=== PATIENT | male | born 1950 | race Caucasian/White ===

== ENCOUNTER 2020-12-30 14:41 | Inpatient (IN) | payer OTHER ==
[2020-12-30] VITALS (7 sets, daily range): BP systolic 105–123; BP diastolic 59–95
[~2020-12-30] VITALS: Ht 195.6 cm; Wt 103.1 kg
--- NOTE | ~2020-12-30 | HEMODYNAMI ---
PATIENT:EZEKIEL BERKOWITZ MEDICAL RECORD: [id number] : 48 LOCATION:[address] ADMISSION DATE: 12/30/20 Generatedon:112:34 Patient name: EZEKIEL BERKOWITZ Patient #: [id number] SSN: *[id number] : 1950 Date of study: 01/05/2021 Page: Of Hemodynamic Procedure Report Patient Data Patient Demographics Procedure consent was obtained First Name: EZEKIEL Gender: Male Last Name: SHO : 1950 [facility] Initial: L Age: 70 year(s) Patient #: [id number] Race: SSN: *[id number] Additional ID: [id number] Contact details [address]: [address] [place] [address] DRIVE State: [place] City: [place] Zip code: [address] Past Medical History Allergies: No known allergies Admission Admission Data Admission Date: 12/30/2020 Admission Time: 17:30 Admit Source: Other Room #: D.2124 Procedure Procedure Types Cath Procedure Diagnostic Procedure Cardioversion External Procedure Description Procedure Date Procedure Date: 01/05/2021 Procedure Start Time: 12:19 Procedure End Time: 12:31 Procedure Staff Name Function Tae Wheeler MD Performing Physician Vane Gaitan RT Monitor Crystal Rogers RT Scrub Isak Scott RN Nurse Ciaran Cortes CRNA Additional personnel Indication Atrial fibrillation Procedure Data Procedure Complications No complications Procedure Medications Medication Administration Route Dosage 0.9% NaCl I.V. 100 ml/hr Oxygen NC 5 l/min Refer to Anesthesia Notes for Sedation Medications Hemodynamics Rest Heart Rate: 75 (bpm) Snapshots Pre Cath Intra NCS Post Cath Vital Signs Time Heart Resp SPO2 NIBP Rhythm Pain Sedation Rate (ipm) (%) (mmHg) Status Level (bpm) 12:13:04 78 17 83 95/63(87) A-Fib 0 (11) 10(A) , No pain 12:17:07 73 16 92 96/55(91) A-Fib 0 (11) 10(A) , No pain 12:22:11 69 37 80 75/51(63) A-Fib 0 (11) 9(A) , No pain 12:24:55 59 21 82 81/61(75) NSR 0 (11) 8(A) , No pain 12:28:54 59 17 89 92/57(79) NSR 0 (11) 8(A) , No pain 12:32:41 75 28 94 Aborted NSR 0 (11) 8(A) , No pain Medications Time Medication Route Dose Verified Delivered Reason Notes Effectiven ess by by 12:15:39 0.9% NaCl I.V. 100 Isak Isak Per ml/hr Tyler Scott physician RN RN 12:15:52 Oxygen NC 5 Isak Isak for low l/min Tyler Scott 02 sats RN RN 12:19:53 Refer to Isak Isak for Anesthesia Tyler Scott sedation Notes for RN RN Sedation Medications Procedure Log Time Note 11:46:21 Informed consent obtained and on chart 11:46:37 Diagnostic Cath Status : Urgent 11:46:55 Indication : Atrial fibrillation 11:47:00 Admit Source: Other 11:47:05 ACC Patient presents with Stable Angina CCS Anginal Class 2--Slight limitation of ordinary activity. 11:47:09 Procedure Status Cardioversion. 11:47:10 Time tracking: Regular hours (M-F 7:00 - 5:00) 11:47:15 Plan of Care:Hemodynamics will remain stable., Cardiac rhythm will remain stable., Comfort level will be maintained., Respiratory function will remain adequate., Patient/ family verbilizes understanding of procedure., Procedure tolerated without complication., Recovers from procedure without complications.. 12:03:32 Isak Scott RN sent for patient. Start room use. 12:05:43 Patient received from PCU to CCL 2 Alert and oriented. Tansferred to table in Supine position. 12:05:45 Warm blankets applied, and harriet hugger turned on for patient comfort. 12:05:45 Correct patient and procedure confirmed by team. 12:05:46 ECG and BP/O2 sat monitors applied to patient. 12:05:47 Full Disclosure recording started 12:06:19 H&P Date Dictated: 12/31/2020 Within 30 days and on chart.. 12:06:20 Pre-procedure instructions explained to patient. 12:06:21 Pre-op teaching completed and patient verbalized understanding. 12:06:26 Family in patients room. 12:06:27 Patient NPO since Midnight. 12:06:44 Previous problem with sedation/anesthesia? No ? 12:06:45 Snore? No 12:06:47 Sleep apnea? No 12:06:48 Deviated septum? No 12:06:49 Opens mouth fully? Yes 12:06:50 Sticks out tongue? Yes 12:06:53 Airway obstruction? Yes COPD 12:06:56 Dentures? No ? 12:07:18 Patient allergic to No known allergies 12:08:19 Is patient on blood thinner?Yes 12:08:26 ACC The patient was administered the following blood thiners within the last 24 hours: Xarelto 12:08:29 Patient diabetic? No. 12:08:52 Patient pain scale 0/10 ?. 12:09:00 IV patent on arrival in right forearm with 0.9% NaCl at [facility]. 12:09:06 Lab results completed and on chart. 12:09:12 Alarms reviewed by Gene Taylor 12:09:15 Quick combo pads placed on patients chest and back. 12:09:23 Ciaran Cortes CRNA present and monitoring patient for TIVA. 12:11:50 Vital chart was started 12:11:59 Rhythm: atrial fibrillation 12:13:08 Baseline sample Acquired. 12:15:39 0.9% NaCl 100 ml/hr I.V. was administered by Isak Scott RN; Per physician; Verbal order read back and verified. 12:15:52 Oxygen 5 l/min NC was administered by Iska Scott RN; for low 02 sats; Verbal order read back and verified. 12:19:00 --------ALL STOP TIME OUT------ 12:19:00 Final Timeout: patient, procedure, and site verified with staff and physician. All members of the team are in agreement. 12:19:05 Fire Safety Assessment: B--The operative or invasive procedure is being performed above the xiphoid process or in the oropharynx., C--Open oxygen or nitrous oxide is being used., D--An ESU, laser, or fiber-optic light is being used. 12:19:09 Physical assessment completed. ASA score P 2 - A patient with mild systemic disease as per Tae Wheeler MD. 12:19:13 Sedation plan: TIVA Medication:Propofol 12::53 Refer to Anesthesia Notes for Sedation Medications was administered by Isak Scott RN; for sedation; Verbal order read back and verified. 12:20:00 Procedure started. 12:20:58 Defibrillator synced and charged to 200 Joules. 12:21:03 Shock delivered. 12::32 Defibrillator synced and charged to 300 Joules. 12:22:39 Shock delivered. 12:23:30 Patient cardioverted to sinus rhythm . 12:24:10 Procedure ended.(Physican Out) 12:24:51 Post-procedure physical assessment completed. ASA score P 2 - A patient with mild systemic disease as per Tae Wheeler MD. 12:24:54 Post procedure rhythm: sinus rhythm 12::58 Post procedure instruction explained to patient.Patient verbalizes understanding. 12:24:58 Patient needs reinforcement of post procedure teaching. 12:25:14 Quick Combo opened to sterile field. 12:25:24 Procedure Complication : No complications 12:25:29 Operative report dictated upon procedure completion. 12:25:30 See physician's report for complete and final results. 12:25:58 Baseline sample Acquired. 12:30:20 Procedure and supply charges have been captured, reviewed, submitted and are correct. 12:31:45 Report given to PCU. 12:31:49 Patient transfered to PCU with Bed. 12:31:51 Procedure ended. 12:31:51 Full Disclosure recording stopped 12:32:32 Crystal Rogers RT(R) was relieved by Vane Counts RT(R) as monitoring person 12:33:01 Vane Counts RT(R) was relieved by Vane Counts RT(R) as monitoring person 12:34:12 Vital chart was stopped Device Usage Item Manufacture Quantity Catalog Hospital Part Current Minimal Lot# / Name Number Charge Number Stock Stock Melba farris# Code exsulin 1 [id number] Combo Signature Audit [place] Stage Time Signature Unsigned Intra-Procedure 01/05/2021 Isak 12:32:20 PM Tyler CARDONA Intra-Procedure 01/05/2021 Vane 12:32:56 PM Counts RT(R) Intra-Procedure 01/05/2021 Tae Wheeler MD 12:34:11 PM Signatures Performing Physician : Signature : Tae Wheeler MD Date : Time : Monitor : Vane Signature : Counts RT Date : Time : Nurse : Isak Lorigan Signature : RN Date : Time : [facility] [address] [place] [address]
[~2020-12-30 14:41] MED LIST: ANXIETY MEDICATION; CARDIZEM120 MG PO; CLINDAMYCIN HC300 MG PO; DEXAMETHASONE2 MG PO; DULERA 100 MCG8.8 GM INH; FEXOFENADINE HC60 MG PO; INHALERS; MELATONIN 3 MG1 TAB PO; MUCINEX600 MG PO; OMNICEF300 MG PO; PROTONIX40 MG PO; Saline Mist NASAL SP NASAL; TESSALON PERLE100 MG PO; VITAMIN B-1100 M1 PO; VITAMIN C PO; VITAMIN D325 MC1 PO; XOPENEX HFA15 GM INH; ZINC-220220 MG PO
[2020-12-30] MEDS ORDERED: ALBUTEROL SULF8.5 GM INH (14:47)
[2020-12-30] MEDS ORDERED: FUROSEMIDE20 MG PO (14:48)
[2020-12-30 15:24] LABS: BASOPHILS 0.3 % (0-2); EOSINOPHILS 0.6 % (0-7); HEMATOCRIT 48.1 % (42.0-54.0); HEMOGLOBIN 14.9 g/dL (13.5-17.5); IMMATURE GRANULOCYTES 0.5 % (0-5); LYMPHOCYTE ABS# 1.38 10x3/uL (1.32-3.57); LYMPHOCYTES 14.4 % (15-50); MCV 96.8 fL (80.0-100.0); MEAN PLATELET VOLUME 10.6 fL (7.4-10.4); NEUTROPHIL ABS# 7.18 10x3/uL (1.78-5.38); NEUTROPHILS 75.2 % (40-80); RBC 4.97 10x6/uL (4.20-6.10); RDW 15.2 % (11.5-14.5); WBC 9.6 10x3/uL (4.8-10.8)
[2020-12-30 15:35] LABS: PLATELET COUNT 197 10x3/uL (130-400)
[2020-12-30 15:41] LABS: CALC OSMOLALITY 287 mosm/kg (275-300); CALCIUM 8.7 mg/dL (8.5-10.1); CARBON DIOXIDE 28.1 mmol/L (21.0-32.0); CHLORIDE - SERUM 103 mmol/L (98-107); CREATININE - SERUM 1.3 mg/dL (0.6-1.3); GLUCOSE 121 mg/dL (74-106); POTASSIUM - SERUM 3.6 mmol/L (3.5-5.1); SODIUM 143 mmol/L (136-145); UREA NITROGEN 17 mg/dL (7-18); eGFR NON AFRICAN AMERICAN 58 mL/min (90-120)
[2020-12-30 15:42] LABS: APTT 31.1 SECONDS (22.8-39.4); INR 1.21 (0.85-1.17); PROTIME 14.1 SECONDS (11.6-15.0)
[2020-12-30 15:54] LABS: ALBUMIN 3.7 g/dL (3.4-5.0); ALKALINE PHOSPHATASE 103 U/L (30-120); ALT (SGPT) 43 U/L (10-68); BILIRUBIN - TOTAL 0.65 mg/dL (0.2-1.3); CKMB 5.5 U/L (0.0-3.6); CREATINE KINASE 140 UL (21-232); PRO BNP 7979 pg/mL (0-125); PROTEIN - SERUM 7.1 g/dL (6.4-8.2)
[2020-12-30 16:04] LABS: TROPONIN-I < 0.017 ng/mL (0.000-0.060)
--- NOTE | 2020-12-30 19:22 | NUR ---
KRANTHIZES 1200CC URINE SINCE HE CAME TO ER
--- NOTE | 2020-12-30 20:42 | NUR ---
DENIES ANY CP. STATES IM FEELING BETTER SINCE I GOT THE LASIX AND GETTING SOME OF THIS FLUID OFF. RATE REMAINS 110-138 CARDIZEM DRIP RUNNING AT 15. ATTEMPTED TO CALL REPORT TO MED 2 AWAITING RETURN CALL FROM NURSE SHANTEL
[2020-12-30 21:25] LABS: CKMB 4.9 U/L (0.0-3.6); CREATINE KINASE 151 UL (21-232); TROPONIN-I < 0.017 ng/mL (0.000-0.060)
[2020-12-30] MEDS ORDERED: SYMBICORT 16010.2 GM INH (21:28)
[2020-12-30] MEDS ORDERED: CLARITIN 10 MG10 MG PO (21:28)
[2020-12-30] MEDS ORDERED: BUSPAR5 MG PO (21:30)
[2020-12-30] MEDS ORDERED: COMBIVENT RESPIM4 GM INH (21:32)
[2020-12-31] VITALS (7 sets, daily range): BP systolic 91–129; BP diastolic 51–80; Ht 195.6 cm; Wt 103.1 kg
[2020-12-31 03:44] LABS: BASOPHILS 0.4 % (0-2); EOSINOPHILS 1.2 % (0-7); HEMATOCRIT 43.9 % (42.0-54.0); HEMOGLOBIN 13.6 g/dL (13.5-17.5); IMMATURE GRANULOCYTES 0.2 % (0-5); LYMPHOCYTE ABS# 1.63 10x3/uL (1.32-3.57); LYMPHOCYTES 17.9 % (15-50); MCH 29.8 pg (26.0-34.0); MCV 96.3 fL (80.0-100.0); MEAN PLATELET VOLUME 10.5 fL (7.4-10.4); NEUTROPHIL ABS# 6.38 10x3/uL (1.78-5.38); NEUTROPHILS 70.3 % (40-80); PLATELET COUNT 196 10x3/uL (130-400); RBC 4.56 10x6/uL (4.20-6.10); RDW 15.1 % (11.5-14.5); WBC 9.1 10x3/uL (4.8-10.8)
[2020-12-31 04:10] LABS: ALBUMIN 3.2 g/dL (3.4-5.0); ALKALINE PHOSPHATASE 97 U/L (30-120); ALT (SGPT) 37 U/L (10-68); CALC OSMOLALITY 293 mosm/kg (275-300); CALCIUM 8.5 mg/dL (8.5-10.1); CARBON DIOXIDE 32.4 mmol/L (21.0-32.0); CHLORIDE - SERUM 107 mmol/L (98-107); CHOL - HDL RATIO 2.6 ratio (2.3-4.9); CHOLESTEROL, TOTAL 131 mg/dL (0-200); CKMB 3.9 U/L (0.0-3.6); CREATINE KINASE 131 UL (21-232); CREATININE - SERUM 1.1 mg/dL (0.6-1.3); GLUCOSE 117 mg/dL (74-106); HDL CHOLESTEROL 50 mg/dL (32-96); LDL CHOLESTEROL 66 mg/dL (0-100); LDL-HDL RATIO 1.3 ratio (1.5-3.5); MAGNESIUM - SERUM 1.9 mg/dL (1.8-2.4); PHOSPHOROUS 3.7 mg/dL (2.5-4.9); POTASSIUM - SERUM 3.6 mmol/L (3.5-5.1); SODIUM 146 mmol/L (136-145); TRIGLYCERIDE 76 mg/dL (30-200); UREA NITROGEN 17 mg/dL (7-18); eGFR NON AFRICAN AMERICAN 70 mL/min (90-120)
[2020-12-31 04:14] LABS: TROPONIN-I 0.017 ng/mL (0.000-0.060)
[2020-12-31 09:53] LABS: CKMB 4.4 U/L (0.0-3.6); CREATINE KINASE 146 UL (21-232); TROPONIN-I 0.017 ng/mL (0.000-0.060)
--- NOTE | 2020-12-31 14:45 | NUR ---
CRISTAL CARLOS NP FOR HR 147. ORDERS RECIEVED FOR LOPRESSOR 5 MG IV X 1.
--- NOTE | 2020-12-31 18:49 | NUR ---
PAGED CARDIOLOGY BECAUSE PT HR 168. BP 110/80. PT GETTING UP TO BR. HR CAME DOWN TO 138 AFTER RESTING. AWAITING CARDIOLOGY TO CALL BACK.
--- NOTE | 2020-12-31 19:00 | NUR ---
REPORT GIVEN BY BRENDAN JIMENES. WALKING ROUNDS MADE WITH THIS PT.
--- NOTE | 2020-12-31 20:00 | NUR ---
IN PT ROOM FOR ASSESSMENT. THIS HAS BEEN COMPLETED. PT IS SITTING STRAIGHT UP IN BED WITH O2 AT 4.5L VIA NC. HIS IV CURRENTLY IS IN THE LEFT HAND BUT IS NOT INFUSING WELL. HE HAS GENERALIZED EDEMA WITH BLE 4+. HE IS NOT ON HIS CARDIZEM DRIP AT THIS MOMENT DUE TO IV HAVING TO BE RESITED. CALLED THE INKJET OPERATOR WHO CONFIRMS THAT HE IS IN UNCONTROLLED A FIB RVR RATE BETWEEN 120'S TO 160'S. PT IS A/A/O. HE IS [place] SO HE ASKED THAT PEOPLE SPEAK LOUDLY TO HIM.
--- NOTE | 2020-12-31 20:30 | NUR ---
NURSE BRENDAN VASQUEZ IS TAKING OVER THIS PT CARE DUE TO PT HAVING A CARDIZEM DRIP. REPORT GIVEN TO CHRISTINA.
--- NOTE | 2020-12-31 23:25 | NUR ---
ASSUMED CARE FROM POONAM D/Nakia PT BEING PLACED ON CARDIZEM DRIP @ 5ML/HR D/T AFIB W/ RVR. NEW IV START TO LEFT FOREARM 20G X1 ATTEMPT. TOLERATED WELL. BILAT LUNGS WITH EXP WHEEZES THROUGHOUT & FINE CRACKLES TO RL BASE. ALERT/ORIENTED, AT BEDSIDE. NO NEEDS VOICED.
[2021-01-01 07:40] LABS: ALBUMIN 3.4 g/dL (3.4-5.0); ANION GAP 11.5 mmol/L (8-16); BASOPHILS 0.3 % (0-2); BILIRUBIN - TOTAL 0.69 mg/dL (0.2-1.3); CALCIUM 8.5 mg/dL (8.5-10.1); CARBON DIOXIDE 32.1 mmol/L (21.0-32.0); CREATININE - SERUM 1.1 mg/dL (0.6-1.3); EOSINOPHILS 2.2 % (0-7); HEMATOCRIT 45.7 % (42.0-54.0); HEMOGLOBIN 14.1 g/dL (13.5-17.5); IMMATURE GRANULOCYTES 0.2 % (0-5); LYMPHOCYTE ABS# 1.68 10x3/uL (1.32-3.57); LYMPHOCYTES 17.9 % (15-50); MAGNESIUM - SERUM 1.9 mg/dL (1.8-2.4); MCH 29.8 pg (26.0-34.0); MCHC 30.9 g/dL (31.0-37.0); MCV 96.6 fL (80.0-100.0); MEAN PLATELET VOLUME 10.8 fL (7.4-10.4); MONOCYTES 9.9 % (2-11); NEUTROPHIL ABS# 6.52 10x3/uL (1.78-5.38); NEUTROPHILS 69.5 % (40-80); PHOSPHOROUS 3.6 mg/dL (2.5-4.9); PLATELET COUNT 203 10x3/uL (130-400); POTASSIUM - SERUM 3.6 mmol/L (3.5-5.1); PROTEIN - SERUM 6.3 g/dL (6.4-8.2); RBC 4.73 10x6/uL (4.20-6.10); RDW 14.9 % (11.5-14.5); WBC 9.4 10x3/uL (4.8-10.8)
[2021-01-01 08:14] VITALS: BP 116/86
[2021-01-01 11:49] VITALS: BP 121/79
[2021-01-01 15:51] VITALS: BP 128/86
--- NOTE | 2021-01-01 17:30 | NUR ---
RESTING IN BED EATING DINNER. AT BEDSIDE. DENIES ANY NEEDS AT THIS TIME. WILL CONTINUE POC AND SAFETY PRECAUTIONS.
--- NOTE | 2021-01-01 19:46 | NUR ---
RECEIVED REPORT, WILL ASSUME CARE OF PT, DENIES ANY NEEDS, AT BEDSIDE, BED IS LOW, SRX2, CALL LIGHT IN REACH, WILL CONTINUE PLAN OF CARE
[2021-01-01 20:54] VITALS: BP 132/75
[2021-01-02 01:56] VITALS: BP 115/67
--- NOTE | 2021-01-02 02:18 | NUR ---
WHEN PT IS UP MOVING AROUND HEARTRATE INCREASES IN THE 150-160
--- NOTE | 2021-01-02 02:39 | NUR ---
I have reviewed this patient and I concur with the Shift Assessment completed by the Licensed Practical Nurse today this shift.
--- NOTE | 2021-01-02 02:47 | NUR ---
ON EXERTION PTS HEART RATE GOES FROM 150 TO 170S. NO DISTRESS.
[2021-01-02 06:09] LABS: BASOPHILS 0.4 % (0-2); EOSINOPHILS 2.6 % (0-7); HEMATOCRIT 46.4 % (42.0-54.0); HEMOGLOBIN 14.6 g/dL (13.5-17.5); IMMATURE GRANULOCYTES 0.2 % (0-5); LYMPHOCYTE ABS# 1.43 10x3/uL (1.32-3.57); MCH 29.9 pg (26.0-34.0); MCHC 31.5 g/dL (31.0-37.0); MCV 95.1 fL (80.0-100.0); MEAN PLATELET VOLUME 10.9 fL (7.4-10.4); MONOCYTES 10.7 % (2-11); NEUTROPHIL ABS# 5.83 10x3/uL (1.78-5.38); NEUTROPHILS 69.1 % (40-80); PLATELET COUNT 202 10x3/uL (130-400); RBC 4.88 10x6/uL (4.20-6.10); RDW 14.7 % (11.5-14.5); WBC 8.4 10x3/uL (4.8-10.8)
[2021-01-02 06:27] LABS: ALBUMIN 3.2 g/dL (3.4-5.0); ALKALINE PHOSPHATASE 97 U/L (30-120); ALT (SGPT) 34 U/L (10-68); CALC OSMOLALITY 286 mosm/kg (275-300); CALCIUM 8.6 mg/dL (8.5-10.1); CARBON DIOXIDE 32.7 mmol/L (21.0-32.0); CHLORIDE - SERUM 103 mmol/L (98-107); GLUCOSE 97 mg/dL (74-106); MAGNESIUM - SERUM 1.9 mg/dL (1.8-2.4); PHOSPHOROUS 3.3 mg/dL (2.5-4.9); POTASSIUM - SERUM 3.3 mmol/L (3.5-5.1); PROTEIN - SERUM 6.6 g/dL (6.4-8.2); SODIUM 143 mmol/L (136-145); UREA NITROGEN 18 mg/dL (7-18); eGFR NON AFRICAN AMERICAN 78 mL/min (90-120)
[2021-01-02 06:43] VITALS: BP 120/82
--- NOTE | 2021-01-02 08:25 | NUR ---
AM MEDS GIVEN AT THIS TIME. PT A/O X4, RESP EVEN AND NONLABORED ON 4L NC. PT DENIES ANY NEEDS AT THIS TIME. CALL LIGHT IN REACH, AT BEDSIDE, NAD NOTED, WILL CONTINUE PLAN OF CARE.
[2021-01-02 09:00] VITALS: BP 116/77
--- NOTE | 2021-01-02 10:05 | NUR ---
NOTIFIED DR. SANABRIA THAT PT IS STILL RUNNING UAF RATE UP TO 160 WITH EXERTION PT WAS ON CARDIZEM DRIP BUT WAS D/C YESTERDAY AND STARTED ON 120MG OF CARDIZEM PO. NEW ORDER FROM DR. SANABRIA TO GIVE PT 10MG BOLUS OF CARDIZEM AND START CARDIZEM DRIP AT 10 AND INCREASE PO CARDIZEM TO 240MG FOR AM DOSE.
[2021-01-02 12:35] VITALS: BP 110/75
--- NOTE | 2021-01-02 14:36 | NUR ---
40MEQ OF K GIVEN FOR LOW K OF 3.2, RECHECK AT 1900. PT UP TO BATHROOM DENIES ANY NEEDS, AT BEDSIDE, CALL LIGHT IN REACH.
[2021-01-02 16:58] VITALS: BP 106/78
--- NOTE | 2021-01-02 19:30 | NUR ---
RECEIVED REPORT, WILL ASSUME CARE OF PT, DENIES ANY NEEDS AT THIS TIME, AT BEDSIDE, BED IS LOW, SRX2, CALL LIGHT IN REACH, WILL CONTINUE PLAN OF CARE
[2021-01-02 21:38] VITALS: BP 110/61
[2021-01-03 01:56] VITALS: BP 99/62
--- NOTE | 2021-01-03 03:09 | NUR ---
I have reviewed this patient and I concur with the Shift Assessment completed by the Licensed Practical Nurse today this shift.
[2021-01-03 04:54] LABS: BASOPHILS 0.4 % (0-2); EOSINOPHILS 2.2 % (0-7); HEMATOCRIT 43.1 % (42.0-54.0); HEMOGLOBIN 13.4 g/dL (13.5-17.5); IMMATURE GRANULOCYTES 0.2 % (0-5); LYMPHOCYTE ABS# 1.89 10x3/uL (1.32-3.57); LYMPHOCYTES 23.5 % (15-50); MCH 29.8 pg (26.0-34.0); MCHC 31.1 g/dL (31.0-37.0); MCV 95.8 fL (80.0-100.0); MEAN PLATELET VOLUME 10.5 fL (7.4-10.4); MONOCYTES 11.5 % (2-11); NEUTROPHIL ABS# 4.99 10x3/uL (1.78-5.38); NEUTROPHILS 62.2 % (40-80); PLATELET COUNT 216 10x3/uL (130-400); RDW 14.7 % (11.5-14.5)
[2021-01-03 05:14] LABS: ANION GAP 6.7 mmol/L (8-16); BILIRUBIN - TOTAL 0.41 mg/dL (0.2-1.3); CALCIUM 8.3 mg/dL (8.5-10.1); CARBON DIOXIDE 35.3 mmol/L (21.0-32.0); CREATININE - SERUM 1.2 mg/dL (0.6-1.3); PHOSPHOROUS 3.7 mg/dL (2.5-4.9); PROTEIN - SERUM 6.2 g/dL (6.4-8.2)
[2021-01-03 05:48] VITALS: BP 110/74
[2021-01-03 13:05] VITALS: BP 107/74
[2021-01-03 17:08] VITALS: BP 108/70
[2021-01-03 19:22] VITALS: BP 165/75
--- NOTE | 2021-01-03 19:39 | NUR ---
RECEIVED REPORT, WILL ASSUME CARE OF PT, DENIES ANY NEEDS, AT BEDSIDE, BED IS LOW, SRX2, CALL LIGHT IN REACH, WILL CONTINUE PLAN OF CARE
--- NOTE | 2021-01-03 23:08 | NUR ---
NOTIFIED PT HAD A RUN OF 11 V TAC
--- NOTE | 2021-01-03 23:09 | NUR ---
CHECKED ON PT, A&O, DENIES ANY NEEDS
[2021-01-03 23:26] VITALS: BP 115/76
[2021-01-04 04:38] VITALS: BP 102/68
[2021-01-04 06:50] LABS: BASOPHILS 0.3 % (0-2); EOSINOPHILS 2.5 % (0-7); HEMATOCRIT 44.2 % (42.0-54.0); IMMATURE GRANULOCYTES 0.2 % (0-5); LYMPHOCYTE ABS# 1.69 10x3/uL (1.32-3.57); LYMPHOCYTES 17.5 % (15-50); MCH 30.3 pg (26.0-34.0); MCHC 31.7 g/dL (31.0-37.0); MCV 95.7 fL (80.0-100.0); MEAN PLATELET VOLUME 10.4 fL (7.4-10.4); MONOCYTES 11.1 % (2-11); NEUTROPHIL ABS# 6.62 10x3/uL (1.78-5.38); NEUTROPHILS 68.4 % (40-80); PLATELET COUNT 220 10x3/uL (130-400); RBC 4.62 10x6/uL (4.20-6.10); RDW 14.8 % (11.5-14.5); WBC 9.7 10x3/uL (4.8-10.8)
[2021-01-04 06:57] LABS: ALBUMIN 3.2 g/dL (3.4-5.0); ANION GAP 10.5 mmol/L (8-16); BILIRUBIN - TOTAL 0.6 mg/dL (0.2-1.3); CALCIUM 8.6 mg/dL (8.5-10.1); CARBON DIOXIDE 32.3 mmol/L (21.0-32.0); CREATININE - SERUM 1.1 mg/dL (0.6-1.3); MAGNESIUM - SERUM 1.9 mg/dL (1.8-2.4); PHOSPHOROUS 3.6 mg/dL (2.5-4.9); POTASSIUM - SERUM 3.8 mmol/L (3.5-5.1); PROTEIN - SERUM 6.7 g/dL (6.4-8.2)
[2021-01-04 08:29] VITALS: BP 114/64
--- NOTE | 2021-01-04 08:30 | NUR ---
AM MEDS GIVEN AT THIS TIME. PT A/O X4, RESP EVEN BUT A LITTLE LABORED ON 4L. PT JUST GOT BACK TO BED FROM THE BATHROOM. ENCOURAGED TO TAKE IN DEEP BREATHS. CAF-98 ON TELE. LT WRIST IV INFUSING CARDIZEM AT 10CC/HR. ALL NEEDS MET, AT BEDSIDE, CALL LIGHT IN REACH.
[2021-01-04 12:41] VITALS: BP 112/66
--- NOTE | 2021-01-04 13:56 | NUR ---
Nutrition Reassessment/Follow-up: Eating well. NPO p MN for cardioversion. Diet: Cardiac PO intake: 100% x 6 meals (01/02-01/03) Labs noted: Glu 111, Alb 3.2 Meds noted: Florajen, Lasix, vit D, Protonix, electrolyte protocol -Nutrition needs unchanged from initial assessment. -RD will follow up within 7 days if pt still admitted.
--- NOTE | 2021-01-04 16:08 | EC ---
PATIENT:EZEKIEL BERKOWITZ DATE OF SERVICE: 12/30/20 SEX: M MEDICAL RECORD: [id number] DATE OF : [birth year] LOCATION:D.M2 D.212 AGE OF PATIENT: 70 ADMISSION DATE: 12/30/20 REFERRING PHYSICIAN: INTERPRETING PHYSICIAN: ARVIN KIRKLAND MD ECHOCARDIOGRAM REPORT ECHO CHARGES 4 ECHO COMPLETE Date: 12/31/20 CLINICAL DIAGNOSIS: DYSPNEA, HX: CHF, AFIB ECHOCARDIOGRAPHIC MEASUREMENTS (adult normal given) AC root (d.<3.7cm) 3.0 cm LV Septum d (<1.2 cm> 1.1 cm Valve Excursion 1.9 cm LV Septum (systole) 1.5 cm Left Atria (s.<4.0cm> 4.1 cm LVPW d(<1.2cm) 0.9 cm RV (d.<2.3cm) 3.0 cm LVPW (sytole) 1.5 cm LV diastole(<5.6CM) 4.9 cm MV E-F(>70mm/sec) cm LV systole 3.6 cm LVOT Diameter 1.9 cm MV exc.(>10mm) 1.0 cm Est.ejection fraction (50-75%) % DOPPLER: LVIT cm/sec A 51 cm/sec E 49 cm/sec LA cm/sec RVSP 40 mmHg LVOT 73 cm/sec AOP1/2T m/s Asc. Ao 88 cm/sec RVOT 45 cm/sec RA cm/sec PA 58 cm/sec AV Gradient Peak 3.1 mmHg AV Mean 1.7 mmHg AV Area 2.1 cm MV Gradient Peak 2.8 mmHg MV Mean 1.5 mmHg MV Area cm COMMENTS: Salvage Determiner: Yasmin JOSEPH Hose Maker: 3 Dr. Quiroga TAPE# Pericardial Effusion N DATE OF SERVICE: Adequate 2D, color-flow imaging, spectral Doppler, and M-Mode FINDINGS: No LVH. LV internal dimension is normal. Wall motion is normal. EF is greater than or equal to 55%. Aortic valve is tricuspid. No evidence of stenosis by Doppler interrogation. Left atrium is mildly dilated at 4.1 cm. Mitral valve shows no prolapse. Trace MR. Right side is grossly normal. Trace TR. ECHOCARDIOGRAM REPORT [id number] EZEKIEL BERKOWITZ TRANSINT:[id number] Voice Confirmation ID: [id number] DOCUMENT ID: [id number] ARVIN KIRKLAND MD at 1608 CC: [id number] DICTATION DATE: 01/01/21 1243 SOFT HAT BINDER: 01/01/21 1322 ADM IN [facility] [address] [place] [id number]
--- NOTE | 2021-01-04 17:19 | NUR ---
PT RESTING COMFORTABLY IN BED, ALL NEEDS MET, SPOUSE AT BEDSIDE, CALL LIGHT IN REACH.
[2021-01-04 17:35] VITALS: BP 102/70
--- NOTE | 2021-01-04 19:19 | NUR ---
CONSENTS SIGNED BY PT AND PLACED ON CHART. PT DENIES ANY NEEDS AT THIS TIME. AT BEDSIDE, CALL LIGHT IN REACH.
[2021-01-04 20:00] VITALS: BP 160/82
[2021-01-05] VITALS (8 sets, daily range): BP systolic 102–152; BP diastolic 61–74
--- NOTE | 2021-01-05 02:38 | NUR ---
1944-- PT IN BED WITH AT BEDSIDE. LEFT ARM EDEMATOUS & RED IN COLOR. ICE PACK PROVIDED FOR ARM. STATES THAT HE IS VERY CONCERNED ABOUT CARDIOVERSION TOMORROW. WOULD LIKE SOMETHING FOR ANXIETY/SLEEP. CALLED VIRY & NEW ORDER RECEIVED. WILL CONTINUE TO MONITOR.
--- NOTE | 2021-01-05 08:30 | NUR ---
PT AWAKE AND ALERT, SITTING IN BED WITH HOB RAISED. IV INFUSING WITHOUT DIFFICULTY. RR EVEN NON LABROED, SPOUSE AT BEDSIDE. CLWR.
--- NOTE | 2021-01-05 09:18 | NUR ---
SPOKE WITH PRIVATE PILOT, PT GIVEN AM MEDS AT THIS TIME WITH SMALL SIP AT THIS TIME. RR EVEN NON LABORED. IV TO LEFT FOREARM D/C, CATHETER INTACT, DRESSING APPLIED. LEFT ARM SWOLLEN AND REDNESS NOTED. NO NEEDS VOICED AT THIS TIME. CLWR.
[2021-01-05 09:22] LABS: BASOPHILS 0.6 % (0-2); EOSINOPHILS 2.8 % (0-7); HEMATOCRIT 44.2 % (42.0-54.0); HEMOGLOBIN 13.8 g/dL (13.5-17.5); IMMATURE GRANULOCYTES 0.1 % (0-5); LYMPHOCYTE ABS# 1.41 10x3/uL (1.32-3.57); LYMPHOCYTES 16.9 % (15-50); MCH 29.9 pg (26.0-34.0); MCHC 31.2 g/dL (31.0-37.0); MCV 95.9 fL (80.0-100.0); MONOCYTES 9.7 % (2-11); NEUTROPHIL ABS# 5.81 10x3/uL (1.78-5.38); NEUTROPHILS 69.9 % (40-80); PLATELET COUNT 209 10x3/uL (130-400); RBC 4.61 10x6/uL (4.20-6.10); RDW 14.5 % (11.5-14.5); WBC 8.3 10x3/uL (4.8-10.8)
[2021-01-05 09:39] LABS: ANION GAP 8.5 mmol/L (8-16); CALCIUM 8.7 mg/dL (8.5-10.1); CARBON DIOXIDE 35.6 mmol/L (21.0-32.0); CREATININE - SERUM 1.2 mg/dL (0.6-1.3); POTASSIUM - SERUM 4.1 mmol/L (3.5-5.1)
[2021-01-05 09:45] LABS: BILIRUBIN - TOTAL 0.55 mg/dL (0.2-1.3); PROTEIN - SERUM 6.4 g/dL (6.4-8.2)
--- NOTE | 2021-01-05 11:57 | MORECARE ---
CASE MANAGEMENT DISCHARGE SUMMARY PATIENT: EZEKIEL BERKOWITZ UNIT: [id number] ADM DATE: 12/30/20 AGE: 70 : 49 SEX: M ROOM/BED: D.2124 AUTHOR: NOLAN,DOC PHYSICIAN: REFERRING PHYSICIAN: LEIGHANN DUNHAM MD DATE OF SERVICE: 01/05/21 Case Management Discharge Planning Summary DCP REVIEW SUMMARY ANTICIPATED D/C DATE: 01/05/2021 EXPECTED LOS : 6 CASE STATUS: DCP Initiated INITIAL REVIEW: 01/05/2021 INITIAL REVIEWER: Alexandra Buckley FINAL DISCHARGE DISPOSITION: : FINAL REVIEWER: FINAL REVIEW DATE: DCP Focus Questions & Answers DCP Screen QUESTION: ANSWER High Risk Factors: : None Walking limitation: Patient stated self rated walking limitation present? : No Age: : 65 - 78 Prior living environment: : Lives with others Disability ranking: : Grade 2: Slight disability DCP Evaluation QUESTION: ANSWER Patient's ability to cope with chronic illness : d. No chronic illness Would patient like to participate in any Care Coordination programs (if applicable): : Not applicable Mental health screen: : No mental health history DCP Re-evaluation QUESTION: ANSWER Would patient like to participate in any Care Coordination programs (if applicable): : Not applicable PATIENT: EZEKIEL BERKOWITZ ENCOUNTER: [id number] MEDICAL RECORD#: [id number] ADMISSION DATE: 12/30/2020 DISCHARGE DATE: ATTENDING MD: LEIGHANN ALVAREZ : AGE: 70 MARITAL STATUS: M DC PLAN ID: [id number] FACILITY: [facility] PRINTED ON: 01/05/21 11:56 CT All edits/amendments must be made on the electronic document DICTATION DATE: 01/05/21 1156 FUNERAL WORKERS: DM 01/05/21 1156 RPT#: [id number] DC DATE: STATUS: ADM IN [facility] [address] [place] [address] END OF REPORT
--- NOTE | 2021-01-05 12:07 | MORECARE ---
CASE MANAGEMENT DISCHARGE SUMMARY PATIENT: EZEKIEL CALDERA UNIT: [id number] ADM DATE: 12/30/20 AGE: 70 : 49 SEX: M ROOM/BED: D.1294 AUTHOR: CLIVE FRANCISCO PHYSICIAN: REFERRING PHYSICIAN: LEIGHANN DUNHAM MD DATE OF SERVICE: 01/05/21 Case Management Discharge Planning Summary DCP REVIEW SUMMARY ANTICIPATED D/C DATE: 01/05/2021 EXPECTED LOS : 6 CASE STATUS: DCP Initiated INITIAL REVIEW: 01/05/2021 INITIAL REVIEWER: Alexandra Buckley FINAL DISCHARGE DISPOSITION: : FINAL REVIEWER: FINAL REVIEW DATE: DCP Focus Questions & Answers DCP Screen QUESTION: ANSWER High Risk Factors: : None Walking limitation: Patient stated self rated walking limitation present? : No Age: : 65 - 78 Prior living environment: : Lives with others Disability ranking: : Grade 2: Slight disability DCP Evaluation QUESTION: ANSWER Patient and/or caregiver agree upon recommended discharge plan? : Yes Family / Caregiver's ability to cope with chronic illness: : a. Adequate (ability to meet patient's medical needs, ensures patient attends medical appts.) Patient's ability to cope with chronic illness : a. Adequate (0-3 ED visits in 6 mos., adequate financial resources, attends scheduled appts.) Patient's current cognitive status: : Alert Patient's current cognitive status: : *Oriented to person, place, situation, time and present Patient gives permission to discuss discharge plans with: (name, relationship and number) : Graciela Hung ) Does the patient have the ability to pay for or attain post discharge needs / services? : N/A Functional screen assessment: : Basic needs can adequately be met by self Family / Caregiver's ability to cope with chronic illness: : a. Adequate (ability to meet patient's medical needs, ensures patient attends medical appts.) Physical Status: : Independent with ADL's Equipment needed for post hospitalization: : Home Oxygen with Nasal Cannula Is there a likelihood that the patient will require additional services to return to the preadmission environment? : No Living Arrangements: : Home with Spouse/Significant Other Other Equipment comments: : [facility] Results of this evaluation have been discussed with: : Significant other Results of this evaluation have been discussed with: : Patient Patient with capacity for self-care or can be cared for in same environment as prior to hospitalization? : Yes Living arrangements comments: : Lives with , Graciela Caldera ([phone]) Baseline cognitive status: : Alert Baseline cognitive status: : *Oriented to person, place, situation, time and present Physical environment modification needed / anticipated for discharge: : No Medication Management: : Patient states can afford medications Planned post hospital services available for patient? : No Pharmacy name(s): : Patient states he receives medications via mail from the [facility] Planned post hospital services covered by insurance plan? : N/A Does Patient have transportation to get home and to follow-up medical appointments when discharged from the hospital? : Yes Would patient like to participate in any Care Coordination programs (if applicable): : Not applicable Comments: : Transportation provided by Does the patient have electricity at home? : Yes Does the patient have running water in their house? : Yes Equipment in use: : Transfer Bench Equipment in use: : Home Oxygen with Nasal Cannula Equipment agency name and contact information: : [facility] Mental health screen: : No mental health history DCP Re-evaluation QUESTION: ANSWER Would patient like to participate in any Care Coordination programs (if applicable): : Not applicable PATIENT: EZEKIEL CALDERA ENCOUNTER: [id number] MEDICAL RECORD#: [id number] ADMISSION DATE: 12/30/2020 DISCHARGE DATE: ATTENDING MD: LEIGHANN ALVAREZ : AGE: 70 MARITAL STATUS: M DC PLAN ID: [id number] FACILITY: [facility] PRINTED ON: 01/05/21 12:07 CT All edits/amendments must be made on the electronic document DICTATION DATE: 01/05/211206 HEAVY EQUIPMENT SALES MANAGER: MARIELA 01/05/211206 RPT#: [id number] DC DATE: STATUS: ADM IN [facility] [address] [place] [address] END OF REPORT
--- NOTE | 2021-01-05 12:40 | NUR ---
PT ARRIVED BACK FROM [facility]ERSION AT THIS TIME. PT AWAKE AND ALERT, TALKATIVE. VS STABLE. CARDIZEM IV DRIP INFUSING WITHOUT DIFFICULTY PER MD ORDER. NO NEEDS VOICED, LUNCH TRAY ORDERED. CLWR.
--- NOTE | 2021-01-05 13:01 | MORECARE ---
CASE MANAGEMENT DISCHARGE SUMMARY PATIENT: EZEKIEL CALDERA UNIT: [id number] ADM DATE: 12/30/20 AGE: 70 : 49 SEX: M ROOM/BED: D.4514 AUTHOR: NOLANDOC PHYSICIAN: REFERRING PHYSICIAN: LEIGHANN DUNHAM MD DATE OF SERVICE: 01/05/21 Case Management Discharge Planning Summary COMMENTS ENTERED DATE: 01/05/21 12:59 CT COMMENT TYPE: Discharge Planning REVIEWER: Alexandra Buckley CM met with patient to assess discharge plan needs. Patient states he lives at home with his , Graciela Caldera ([phone]) who is also present in the room. He is currently on 4L O2 via [place] with his baseline being 2.5L. He would like to resume his home O2 services with [facility] contracted through the [place]. He states he is independent with ADLs and ambulates without assistive devices. CM discussed the availability of home health services including home medical equipment should that be needed. Patient declined HHS, SNF, IPR, and DME services at this time and is satisfied with DC plan. He states he has reliable transportation to and from medical appointments. His is a LOOPER FIXER and will provide transportation when patient is discharged. Graciela will bring patient's portable O2 for transport. CM will continue to follow and assist as needed. DCP REVIEW SUMMARY ANTICIPATED D/C DATE: 01/05/2021 EXPECTED LOS : 6 CASE STATUS: DCP Initiated INITIAL REVIEW: 01/05/2021 INITIAL REVIEWER: Alexandra Buckley FINAL DISCHARGE DISPOSITION: : FINAL REVIEWER: FINAL REVIEW DATE: DCP Focus Questions & Answers DCP Screen QUESTION: ANSWER High Risk Factors: : None Walking limitation: Patient stated self rated walking limitation present? : No Age: : 65 - 78 Prior living environment: : Lives with others Disability ranking: : Grade 2: Slight disability DCP Evaluation QUESTION: ANSWER Patient and/or caregiver agree upon recommended discharge plan? : Yes Family / Caregiver's ability to cope with chronic illness: : a. Adequate (ability to meet patient's medical needs, ensures patient attends medical appts.) Patient's ability to cope with chronic illness : a. Adequate (0-3 ED visits in 6 mos., adequate financial resources, attends scheduled appts.) Patient's current cognitive status: : Alert Patient's current cognitive status: : *Oriented to person, place, situation, time and present Patient gives permission to discuss discharge plans with: (name, relationship and number) : Graciela Hung ) Does the patient have the ability to pay for or attain post discharge needs / services? : N/A Functional screen assessment: : Basic needs can adequately be met by self Family / Caregiver's ability to cope with chronic illness: : a. Adequate (ability to meet patient's medical needs, ensures patient attends medical appts.) Physical Status: : Independent with ADL's Equipment needed for post hospitalization: : Home Oxygen with Nasal Cannula Is there a likelihood that the patient will require additional services to return to the preadmission environment? : No Living Arrangements: : Home with Spouse/Significant Other Other Equipment comments: : will resume O2 home O2 services through the [place] Results of this evaluation have been discussed with: : Significant other Results of this evaluation have been discussed with: : Patient Patient with capacity for self-care or can be cared for in same environment as prior to hospitalization? : Yes Living arrangements comments: : Lives with , Graciela Caldera ([phone]) Baseline cognitive status: : Alert Baseline cognitive status: : *Oriented to person, place, situation, time and present Physical environment modification needed / anticipated for discharge: : No Medication Management: : Patient states can afford medications Planned post hospital services available for patient? : No Pharmacy name(s): : Patient states he receives medications via mail from the [place] Planned post hospital services covered by insurance plan? : N/A Does Patient have transportation to get home and to follow-up medical appointments when discharged from the hospital? : Yes Would patient like to participate in any Care Coordination programs (if applicable): : Not applicable Comments: : Transportation provided by Does the patient have electricity at home? : Yes Does the patient have running water in their house? : Yes Equipment in use: : Transfer Bench Equipment in use: : Home Oxygen with Nasal Cannula Equipment agency name and contact information: : [facility] Mental health screen: : No mental health history DCP Re-evaluation QUESTION: ANSWER Would patient like to participate in any Care Coordination programs (if applicable): : Not applicable PATIENT: EZEKIEL CALDERA ENCOUNTER: [id number] MEDICAL RECORD#: [id number] ADMISSION DATE: 12/30/2020 DISCHARGE DATE: ATTENDING MD: LEIGHANN ALVAREZ : AGE: 70 MARITAL STATUS: M DC PLAN ID: [id number] FACILITY: [facility] PRINTED ON: 01/05/21 13:01 CT All edits/amendments must be made on the electronic document DICTATION DATE: 01/05/21 130 BID WRITER: MARIELA 01/05/21 1301 RPT#: [id number] DC DATE: STATUS: ADM IN [facility] [address] [place] [address] END OF REPORT
[2021-01-05] MEDS ORDERED: CARDIZEM CD240 MG PO (14:20)
[2021-01-05] MEDS ORDERED: BETAPACE 80 MG80 MG PO (14:20)
[2021-01-05] MEDS ORDERED: VIBRAMYCIN 100100 MG PO (14:21)
--- NOTE | 2021-01-05 14:37 | NUR ---
SPOKE WITH DR SANABRIA CLARIFYING CARDIMILAGROSM DRIP ORDER VS D/C. DR SANABRIA STATES TO LEAVE HOME MEDS IS AND TO D/C DRIP AND HE CAN BE D/C HOME. ORDER READ BACK AND VERIFIED.
--- NOTE | 2021-01-05 14:41 | NUR ---
NOTIFIED PT AND PT WILL BE D.C TODAY. PT AND STATE UNDERSTANDING AND DENY ANY QUESTIONS.
--- NOTE | 2021-01-05 15:20 | NUR ---
D/C INSTRUCTIONS GIVEN TO PT AND AT THIS TIME. PT AND STATE UNDERSTANDING. NO QUESTIONS VOICED. PT GATHERING BELONGINGS AT THIS TIME.
--- NOTE | 2021-01-05 15:35 | NUR ---
PT WHEELED TO PRIVATE VEHICLE AT THIS TIME. RR EVEN NON LABORED. PORTABLE O2 IN PLACE. ALL BELONGINGS WITH PT TIME OF D/C. AT SIDE. NO DISTRESS NOTED.
--- NOTE | 2021-01-05 16:51 | MORECARE ---
CASE MANAGEMENT DISCHARGE SUMMARY PATIENT: EZEKIEL CALDERA UNIT: [id number] ADM DATE: 12/30/20 AGE: 70 : 49 SEX: M ROOM/BED: D.2824 AUTHOR: NOLANDOC PHYSICIAN: REFERRING PHYSICIAN: LEIGHANN DUNHAM MD DATE OF SERVICE: 01/05/21 Case Management Discharge Planning Summary COMMENTS ENTERED DATE: 01/05/21 12:59 CT COMMENT TYPE: Discharge Planning REVIEWER: Alexandra Buckley CM met with patient to assess discharge plan needs. Patient states he lives at home with his , Graciela Caldera ([phone]) who is also present in the room. He is currently on 4L O2 via [place] with his baseline being 2.5L. He would like to resume his home O2 services with [facility] contracted through the [place]. He states he is independent with ADLs and ambulates without assistive devices. CM discussed the availability of home health services including home medical equipment should that be needed. Patient declined HHS, SNF, IPR, and DME services at this time and is satisfied with DC plan. He states he has reliable transportation to and from medical appointments. His is a IS CONSULTANT and will provide transportation when patient is discharged. Graciela will bring patient's portable O2 for transport. CM will continue to follow and assist as needed. DCP REVIEW SUMMARY ANTICIPATED D/C DATE: 01/05/2021 EXPECTED LOS : 6 CASE STATUS: DCP Initiated INITIAL REVIEW: 01/05/2021 INITIAL REVIEWER: Alexandra Buckley FINAL DISCHARGE DISPOSITION: 01 : Home or Self Care (Routine Discharge) FINAL REVIEWER: Alexandra Buckley FINAL REVIEW DATE: DCP Focus Questions & Answers DCP Screen QUESTION: ANSWER High Risk Factors: : None Walking limitation: Patient stated self rated walking limitation present? : No Age: : 65 - 78 Prior living environment: : Lives with others Disability ranking: : Grade 2: Slight disability DCP Evaluation QUESTION: ANSWER Patient and/or caregiver agree upon recommended discharge plan? : Yes Family / Caregiver's ability to cope with chronic illness: : a. Adequate (ability to meet patient's medical needs, ensures patient attends medical appts.) Patient's ability to cope with chronic illness : a. Adequate (0-3 ED visits in 6 mos., adequate financial resources, attends scheduled appts.) Patient's current cognitive status: : Alert Patient's current cognitive status: : *Oriented to person, place, situation, time and present Patient gives permission to discuss discharge plans with: (name, relationship and number) : Graciela Hung ) Does the patient have the ability to pay for or attain post discharge needs / services? : N/A Functional screen assessment: : Basic needs can adequately be met by self Family / Caregiver's ability to cope with chronic illness: : a. Adequate (ability to meet patient's medical needs, ensures patient attends medical appts.) Physical Status: : Independent with ADL's Equipment needed for post hospitalization: : Home Oxygen with Nasal Cannula Is there a likelihood that the patient will require additional services to return to the preadmission environment? : No Living Arrangements: : Home with Spouse/Significant Other Other Equipment comments: : will resume O2 home O2 services through the [place] Results of this evaluation have been discussed with: : Significant other Results of this evaluation have been discussed with: : Patient Patient with capacity for self-care or can be cared for in same environment as prior to hospitalization? : Yes Living arrangements comments: : Lives with Graciela ([phone]) Baseline cognitive status: : Alert Baseline cognitive status: : *Oriented to person, place, situation, time and present Physical environment modification needed / anticipated for discharge: : No Medication Management: : Patient states can afford medications Planned post hospital services available for patient? : No Pharmacy name(s): : Patient states he receives medications via mail from the [place] Planned post hospital services covered by insurance plan? : N/A Does Patient have transportation to get home and to follow-up medical appointments when discharged from the hospital? : Yes Would patient like to participate in any Care Coordination programs (if applicable): : Not applicable Comments: : Transportation provided by Does the patient have electricity at home? : Yes Does the patient have running water in their house? : Yes Equipment in use: : Transfer Bench Equipment in use: : Home Oxygen with Nasal Cannula Equipment agency name and contact information: : [facility] Mental health screen: : No mental health history DCP Re-evaluation QUESTION: ANSWER Would patient like to participate in any Care Coordination programs (if applicable): : Not applicable PATIENT: EZEKIEL CALDERA ENCOUNTER: [id number] MEDICAL RECORD#: [id number] ADMISSION DATE: 12/30/2020 DISCHARGE DATE: 01/05/2021 ATTENDING MD: LEIGHANN ALVAREZ : AGE: 70 MARITAL STATUS: M DC PLAN ID: [id number] FACILITY: [facility] PRINTED ON: 01/05/21 16:51 CT All edits/amendments must be made on the electronic document DICTATION DATE: 01/05/211650 STOCKROOM COORDINATOR: MARIELA 01/05/211650 RPT#: [id number] DC DATE:01/05/21 STATUS: DIS IN [facility] [address] [place] [address] END OF REPORT
== END 2021-01-05 15:36 | disposition home or self-care (01) | DRG 308 ==
LOC: D.ER 14:41 → D.M2 17:30
PROVIDERS: Family Medicine; ADMIT Emergency Medicine; ATTEND Emergency Medicine
DX: I48.20 Chronic atrial fibrillation, unspecified (principal); I50.23 Acute on chronic systolic (congestive) heart failure; L03.114 Cellulitis of left upper limb; J43.9 Emphysema, unspecified; N40.0 Benign prostatic hyperplasia without lower urinary tract symptoms; F41.9 Anxiety disorder, unspecified

== ENCOUNTER 2021-02-10 17:13 | Inpatient (IN) | payer OTHER ==
[~2021-02-10] VITALS: Ht 195.6 cm; Wt 113.2 kg
[2021-02-10] VITALS (7 sets, daily range): BP systolic 88–109; BP diastolic 57–73; BMI 30.1
[~2021-02-10 17:13] MED LIST changes: +ALBUTEROL SULF8.5 GM INH; +BETAPACE 80 MG80 MG PO; +BUSPAR5 MG PO; +CARDIZEM CD240 MG PO; +CLARITIN 10 MG10 MG PO; +COMBIVENT RESPIM4 GM INH; +FUROSEMIDE20 MG PO; +SYMBICORT 16010.2 GM INH; +VIBRAMYCIN 100100 MG PO
[2021-02-10 17:30] LABS: BASOPHILS 0.3 % (0-2); EOSINOPHILS 0.1 % (0-7); HEMATOCRIT 50.2 % (42.0-54.0); HEMOGLOBIN 15.4 g/dL (13.5-17.5); LYMPHOCYTES 4.6 % (15-50); MCH 28.6 pg (26.0-34.0); MCHC 30.7 g/dL (31.0-37.0); MEAN PLATELET VOLUME 8.2 fL (7.4-10.4); MONOCYTES 13.3 % (2-11); NEUTROPHILS 81.7 % (40-80); RDW 15.6 % (11.5-14.5); WBC 14.7 10x3/uL (4.8-10.8)
[2021-02-10 17:33] LABS: PLATELET COUNT 270 10x3/uL (130-400)
[2021-02-10 17:47] LABS: ANION GAP 17.4 mmol/L (8-16); CALCIUM 8.9 mg/dL (8.5-10.1); CARBON DIOXIDE 25.4 mmol/L (21.0-32.0); CREATININE - SERUM 2.5 mg/dL (0.6-1.3); POTASSIUM - SERUM 5.8 mmol/L (3.5-5.1)
[2021-02-10 18:08] LABS: BILIRUBIN - TOTAL 1.05 mg/dL (0.2-1.3); PROTEIN - SERUM 6.6 g/dL (6.4-8.2)
[2021-02-10 18:18] LABS: TROPONIN-I 0.071 ng/mL (0.000-0.060)
--- NOTE | 2021-02-10 18:38 | NUR ---
PT ARRIVED VIA EMS. HOSPITAL BIPAP STARTED ON PT. FAMILY EN ROUTE. MEDS GIVEN AND LABS/ABG COMPLETE. AFTER LASIX GIVEN BLADDER SCAN DONE DUE TO NO URINE AFTER AN HOUR. NOTE 132CC IN BLADDER. MD AWARE AND WILL TREAT ACCORDINGLY.
--- NOTE | 2021-02-10 20:45 | NUR ---
RECEIVED PT FROM THE ER TO ROOM 2303. PT IS AWAKE AND ALERT AT THIS TIME. PITTING/WEEPING EDEMA NOTED TO ALL EXTREMEITIES. PT ATTACHED TO MONITORS. DUE TO PT HAVING A HARD TIME BREATHING PT PLACED BACK ON BIPAP AND ADMISSION INFORMATION OBTAINED FROM WHO IS AT BEDSIDE. NO NEEDS VOICED AT THIS TIME. NO S/S OF DISTRESS NOTED. SPOKE WITH CUATE MCGRATH APN AND GAVE UPDATE ON PATIENT. ORDERS RECEIVED. WILL CONTINUE TO MONITOR.
--- NOTE | 2021-02-10 22:32 | NUR ---
REPEAT ABGS ORDERED AND RT ATTEMPTED TO OBTAIN AT THIS TIME. RESULTS APPEAR TO BE MIXED VENOUS. CUATE MCGRATH APN INFORMED OF RESULTS OBTAINED AND DIFFICULTY TO OBTAIN THOSE RESULTS. ORDERS RECEIVED TO OBTAIN A-LINE AND BASED ON THE PH ON RESULTS TO CONSULT SURGERY FOR CVL PLACEMENT. CALL MADE TO DR LUKE AND WAS TOLD THAT SINCE I HAD A WORKING IV AT THIS TIME HE WOULD PLACE LINE IN THE MORNING. ANESTHESIA PAGED FOR A-LINE PLACEMENT. OBTAINED CONSENTS FOR LINE PLACEMENT FROM DUE TO PT BECOMING INCREASINGLY LETHERGIC AND MORE UNRESPONSIVE. AT THIS TIME PT WILL STILL WAKE UP WITH PHYSICAL STIMULATION.
[2021-02-11] VITALS (94 sets, daily range): BP systolic 62–117; BP diastolic 29–99; Ht 195.6 cm; Wt 113.2 kg
--- NOTE | 2021-02-11 | NUR ---
ANESTHESIA WAS UNABLE TO PLACE A-LINE DUE TO AMOUNT OF EDEMA IN PATIENT'S EXTREMITIES. CUATE MCGRATH APN NOTIFIED. DR CANO NOTIFIED OF CONSULT AND OF FACT THAT WE ARE UNABLE TO OBTAIN ACCURATE ABG, BUT DID GIVE HIM THE RESULTS OF LAST ABG. ORDERS RECEIVED TO INTUBATE PT BASED ON PT'S CURRENT PH AND DECREASING LOC. PRESENT AT BEDSIDE AT THIS TIME AND VERBAL CONSENT FOR INTUBATION OBTAINED FROM . WILL CONTINUE TO MONITOR.
[2021-02-11 03:35] LABS: BASOPHILS 0.4 % (0-2); EOSINOPHILS 0.1 % (0-7); HEMATOCRIT 43.5 % (42.0-54.0); HEMOGLOBIN 13.9 g/dL (13.5-17.5); LYMPHOCYTES 4.6 % (15-50); MCH 28.7 pg (26.0-34.0); MEAN PLATELET VOLUME 8.3 fL (7.4-10.4); MONOCYTES 8.3 % (2-11); NEUTROPHILS 86.6 % (40-80); RBC 4.85 10x6/uL (4.20-6.10); WBC 12.7 10x3/uL (4.8-10.8)
[2021-02-11 03:50] LABS: MCV 89.7 fL (80.0-100.0); PLATELET COUNT 192 10x3/uL (130-400)
[2021-02-11 04:07] LABS: ALBUMIN 2.8 g/dL (3.4-5.0); ALKALINE PHOSPHATASE 168 U/L (30-120); CALC OSMOLALITY 286 mosm/kg (275-300); CALCIUM 8.6 mg/dL (8.5-10.1); CARBON DIOXIDE 28.6 mmol/L (21.0-32.0); CHLORIDE - SERUM 100 mmol/L (98-107); CKMB 6.2 U/L (0.0-3.6); CREATINE KINASE 262 UL (21-232); CREATININE - SERUM 2.2 mg/dL (0.6-1.3); GLUCOSE 104 mg/dL (74-106); MAGNESIUM - SERUM 2.2 mg/dL (1.8-2.4); PHOSPHOROUS 4.8 mg/dL (2.5-4.9); PROTEIN - SERUM 5.6 g/dL (6.4-8.2); SODIUM 136 mmol/L (136-145); TROPONIN-I 0.048 ng/mL (0.000-0.060); UREA NITROGEN 55 mg/dL (7-18); eGFR NON AFRICAN AMERICAN 31 mL/min (90-120)
[2021-02-11 04:40] LABS: ALT (SGPT) 4024 U/L (10-68); POTASSIUM - SERUM 6.2 mmol/L (3.5-5.1)
--- NOTE | 2021-02-11 07:19 | NUR ---
DR. LUKE AT BEDSIDE. WAS MADE AWARE OF NEED FOR TRIALYSIS CATHETER. STATES HE WILL BE BACK TO PLACE ONE AFTER HIS FIRST CASE.
[2021-02-11 07:37] LABS: APTT 31.7 SECONDS (22.8-39.4); INR 2.04 (0.85-1.17); PROTIME 24.1 SECONDS (11.6-15.0)
--- NOTE | 2021-02-11 10:00 | NUR ---
ANESTHESIA AT BEDSIDE. ART LINE PLACED TO RIGHT RADIAL ARTERY. GOOD WAVEFORM PRESENT. ARM PROTECTOR PLACED. LEVOPHED ADJUSTED TO BP PER ORDERS. 1215- DR. LUKE AT BEDSIDE. TRIALYSIS PLACED TO LEFT SUBCLAVIAN AND DRESSING CDI. LINES CHANGED.
[2021-02-11 12:16] LABS: ANION GAP 8.6 mmol/L (8-16); CALCIUM 8.5 mg/dL (8.5-10.1); CARBON DIOXIDE 30.9 mmol/L (21.0-32.0); CREATININE - SERUM 2.4 mg/dL (0.6-1.3); POTASSIUM - SERUM 4.5 mmol/L (3.5-5.1)
[2021-02-11 12:18] LABS: CKMB 4.8 U/L (0.0-3.6); CREATINE KINASE 359 UL (21-232); TROPONIN-I 0.063 ng/mL (0.000-0.060)
--- NOTE | 2021-02-11 15:52 | EC ---
PATIENT:EZEKIEL BERKOWITZ DATE OF SERVICE: 02/10/21 SEX: M MEDICAL RECORD: [id number] DATE OF : 48 LOCATION:[facility] D230 AGE OF PATIENT: 70 ADMISSION DATE: 02/10/21 REFERRING PHYSICIAN: INTERPRETING PHYSICIAN: ARVIN KIRKLAND MD ECHOCARDIOGRAM REPORT ECHO CHARGES 4 ECHO COMPLETE Date: 02/11/21 CLINICAL DIAGNOSIS: ACUTE CHF, ANASARCA, AFIB ECHOCARDIOGRAPHIC MEASUREMENTS (adult normal given) AC root (d.<3.7cm) 0 cm LV Septum d (<1.2 cm> 0 cm Valve Excursion 0 cm LV Septum (systole) 0 cm Left Atria (s.<4.0cm> cm LVPW d(<1.2cm) 0 cm RV (d.<2.3cm) 0 cm LVPW (sytole) 0 cm LV diastole(<5.6CM) 0 cm MV E-F(>70mm/sec) 0 cm LV systole 0 cm LVOT Diameter 0 cm MV exc.(>10mm) 0 cm Est.ejection fraction (50-75%) % DOPPLER: LVIT cm/sec A 0 cm/sec E 0 cm/sec LA cm/sec RVSP 30 mmHg LVOT 0 cm/sec AOP1/2T m/s Asc. Ao cm/sec RVOT 0 cm/sec RA 0 cm/sec PA 0 cm/sec AV Gradient Peak 0 mmHg AV Mean 0 mmHg AV Area cm MV Gradient Peak 0 mmHg MV Mean mmHg MV Area cm COMMENTS: 0 Parts Coordinator: 5 [facility] Senior Corporate Accountant: 3 Dr. Quiroga TAPE# Pericardial Effusion N DATE OF SERVICE: Adequate 2D, color-flow imaging, spectral Doppler, and M-Mode. FINDINGS: Grossly elevated LVH is present. LV internal dimensions appear dilated. LV is globally hypokinetic with reduced EF, estimated EF 10-15%. The aortic valve was tricuspid with good valve excursion. Left atrium again appears dilated. Mitral valve appears normal. Trace MR. Right-sided grossly normal. Mild TR. ECHOCARDIOGRAM REPORT [id number] EZEKIEL BERKOWITZ TRANSINT:[id number] Voice Confirmation ID: [id number] DOCUMENT ID: [id number] ARVIN KIRKLAND MD at 7303 CC: [id number] DICTATION DATE: 02/11/21 1401 BATCH FREEZER OPERATOR: 02/11/21 1433 ADM IN [facility] [address] [id number]
[2021-02-11 16:54] LABS: BILIRUBIN NEGATIVE (NEGATIVE); KETONE NEGATIVE (NEGATIVE); NITRITE NEGATIVE (NEGATIVE); UROBILINOGEN NORMAL mg/dL (< 2)
[2021-02-11 16:55] LABS: SQUAMOUS EPITHELIAL 0-5 HPF (0-4)
[2021-02-11 16:56] LABS: BACTERIA FEW HPF (NONE SEEN)
--- NOTE | 2021-02-11 19:00 | NUR ---
BEDSIDE REPORT COMPLETED WITH OFF GOING NURSE. PT IS IN BED INTUBATED AND SEDATED. FAMILY PRESENT AT BEDSIDE. SHIFT ASSESSMENT COMPLETED, SEE FLOWSHEET FOR DETAILS. NO NEEDS NOTICED AT THIS TIME. NO S/S OF DISTRESS NOTED. WILL CONTINUE TO MONITOR.
[2021-02-12] VITALS (92 sets, daily range): BP systolic 72–125; BP diastolic 34–107
[2021-02-12 03:51] LABS: BASOPHILS 0.3 % (0-2); EOSINOPHILS 1.2 % (0-7); HEMATOCRIT 45.5 % (42.0-54.0); HEMOGLOBIN 14.7 g/dL (13.5-17.5); LYMPHOCYTES 7.1 % (15-50); MCHC 32.3 g/dL (31.0-37.0); MCV 89.7 fL (80.0-100.0); MEAN PLATELET VOLUME 8.4 fL (7.4-10.4); MONOCYTES 6.4 % (2-11); PLATELET COUNT 186 10x3/uL (130-400); RBC 5.08 10x6/uL (4.20-6.10); RDW 15.1 % (11.5-14.5)
[2021-02-12 03:55] LABS: WBC 8.3 10x3/uL (4.8-10.8)
[2021-02-12 04:14] LABS: ALBUMIN 2.3 g/dL (3.4-5.0); ANION GAP 11.8 mmol/L (8-16); BILIRUBIN - TOTAL 1.06 mg/dL (0.2-1.3); CALCIUM 7.6 mg/dL (8.5-10.1); CARBON DIOXIDE 26.8 mmol/L (21.0-32.0); CREATININE - SERUM 2.2 mg/dL (0.6-1.3); PHOSPHOROUS 3.9 mg/dL (2.5-4.9); POTASSIUM - SERUM 4.6 mmol/L (3.5-5.1); PROTEIN - SERUM 5.3 g/dL (6.4-8.2)
--- NOTE | 2021-02-12 09:00 | NUR ---
DR. CANO AT BEDSIDE. DISCUSSED PROGNOSIS WITH . STATES TO CHANGE CODE STATUS TO DNR.
[2021-02-12 10:12] LABS: HEPATITIS C ANTIBODY <0.1 S/CO RAT (0.0-0.9)
[2021-02-13] VITALS (106 sets, daily range): BP systolic 78–176; BP diastolic 51–108
[2021-02-13 05:31] LABS: BASOPHILS 0.6 % (0-2); EOSINOPHILS 1.3 % (0-7); HEMATOCRIT 40.8 % (42.0-54.0); HEMOGLOBIN 13.3 g/dL (13.5-17.5); LYMPHOCYTES 10.6 % (15-50); MCH 29.1 pg (26.0-34.0); MCHC 32.5 g/dL (31.0-37.0); MCV 89.5 fL (80.0-100.0); MEAN PLATELET VOLUME 8.3 fL (7.4-10.4); MONOCYTES 9.7 % (2-11); NEUTROPHILS 77.8 % (40-80); RBC 4.56 10x6/uL (4.20-6.10); RDW 15.3 % (11.5-14.5)
[2021-02-13 05:38] LABS: PLATELET COUNT 122 10x3/uL (130-400); WBC 5.9 10x3/uL (4.8-10.8)
[2021-02-13 05:58] LABS: ALBUMIN 2.6 g/dL (3.4-5.0); BILIRUBIN - TOTAL 1.24 mg/dL (0.2-1.3); CALCIUM 7.2 mg/dL (8.5-10.1); MAGNESIUM - SERUM 1.7 mg/dL (1.8-2.4); PHOSPHOROUS 3.1 mg/dL (2.5-4.9); PROTEIN - SERUM 5.2 g/dL (6.4-8.2)
[2021-02-13 05:59] LABS: ANION GAP 9.7 mmol/L (8-16); CREATININE - SERUM 1.5 mg/dL (0.6-1.3); POTASSIUM - SERUM 3.7 mmol/L (3.5-5.1)
--- NOTE | 2021-02-13 10:29 | NUR ---
PTS AT BEDSIDE AT THIS TIME. UPDATES PROVIDED. ALSO DR KIRKLAND HAS ROUNDED ON PT THIS MORNING AND SPOKE WITH PTS . ALL QUESTIONS ADRESSED. PRESSORS TITRATED TO ORDER. SEE IV FLOWSHEET. NO ACUTE DISTRESS NOTED. WILL CONTINUE PLAN OF CARE.
--- NOTE | 2021-02-13 11:30 | NUR ---
PER DR CANO, KEEP DOBUTAMINE AT 10 MCG/KG/MIN AND DO NOT DECREASE THIS RATE.
--- NOTE | 2021-02-13 11:33 | NUR ---
TUBE FEED ORDERS RECIEVED. WILL START WHEN RECIEVE A KANGAROO PUMP.
--- NOTE | 2021-02-13 16:31 | NUR ---
TUBE FEEDS STARTED AT THIS TIME PER ORDERS. NO ACUTE DISTRESS NOTED. OGT PLACEMENT VERIFIED VIA AUSCULTATION. WILL CONTINUE PLAN OF CARE.
--- NOTE | 2021-02-13 22:45 | NUR ---
OGT PLACEMENT VERIFIED VIA AUSCULTATION, NO RESIDUAL OBSERVED AT THIS TIME. FEED CONTINUED AT 10 ML/HR WITH 50 ML H20 FLUSH Q4HR. CPOC.
[2021-02-14] VITALS (50 sets, daily range): BP systolic 91–139; BP diastolic 53–82
[2021-02-14 05:23] LABS: BASOPHILS 0.5 % (0-2); EOSINOPHILS 1.8 % (0-7); HEMATOCRIT 39.7 % (42.0-54.0); HEMOGLOBIN 12.9 g/dL (13.5-17.5); LYMPHOCYTES 10.3 % (15-50); MCHC 32.4 g/dL (31.0-37.0); MCV 89.5 fL (80.0-100.0); MEAN PLATELET VOLUME 7.9 fL (7.4-10.4); MONOCYTES 9.4 % (2-11); PLATELET COUNT 115 10x3/uL (130-400); RBC 4.44 10x6/uL (4.20-6.10); RDW 15.4 % (11.5-14.5); WBC 6.1 10x3/uL (4.8-10.8)
[2021-02-14 05:37] LABS: APTT 37.5 SECONDS (22.8-39.4)
[2021-02-14 05:38] LABS: INR 1.42 (0.85-1.17); PROTIME 16.1 SECONDS (11.6-15.0)
[2021-02-14 05:39] LABS: D-DIMER-QUANTITATIVE 2.9 ug/mLFEU (0.20-0.54)
[2021-02-14 05:50] LABS: ALBUMIN 2.7 g/dL (3.4-5.0); ANION GAP 9.7 mmol/L (8-16); BILIRUBIN - TOTAL 1.35 mg/dL (0.2-1.3); CALCIUM 7.1 mg/dL (8.5-10.1); CARBON DIOXIDE 33.5 mmol/L (21.0-32.0); CREATININE - SERUM 1.4 mg/dL (0.6-1.3); MAGNESIUM - SERUM 1.6 mg/dL (1.8-2.4); PHOSPHOROUS 3.2 mg/dL (2.5-4.9); POTASSIUM - SERUM 3.2 mmol/L (3.5-5.1); PROTEIN - SERUM 5.4 g/dL (6.4-8.2)
[2021-02-15] VITALS (23 sets, daily range): BP systolic 111–167; BP diastolic 56–98
[2021-02-15 05:03] LABS: BASOPHILS 0.6 % (0-2); EOSINOPHILS 2.4 % (0-7); HEMATOCRIT 40.3 % (42.0-54.0); HEMOGLOBIN 13.1 g/dL (13.5-17.5); LYMPHOCYTES 11.7 % (15-50); MCH 28.6 pg (26.0-34.0); MCHC 32.4 g/dL (31.0-37.0); MCV 88.2 fL (80.0-100.0); MEAN PLATELET VOLUME 7.9 fL (7.4-10.4); MONOCYTES 9.9 % (2-11); NEUTROPHILS 75.4 % (40-80); PLATELET COUNT 120 10x3/uL (130-400); RBC 4.57 10x6/uL (4.20-6.10); RDW 15.3 % (11.5-14.5); WBC 6.6 10x3/uL (4.8-10.8)
[2021-02-15 05:27] LABS: ALBUMIN 2.7 g/dL (3.4-5.0); BILIRUBIN - TOTAL 1.32 mg/dL (0.2-1.3); CALCIUM 7.4 mg/dL (8.5-10.1); CARBON DIOXIDE 34.8 mmol/L (21.0-32.0); CREATININE - SERUM 1.3 mg/dL (0.6-1.3); MAGNESIUM - SERUM 1.6 mg/dL (1.8-2.4); PHOSPHOROUS 2.6 mg/dL (2.5-4.9); PROTEIN - SERUM 5.4 g/dL (6.4-8.2)
[2021-02-15 05:34] LABS: ANION GAP 8.2 mmol/L (8-16)
--- NOTE | 2021-02-15 07:23 | NUR ---
Nutrition follow-up/reassessment: Pt intubated, sedated with propofol @ 15 mcg/kg/min Labs reviewed Dialysis ongoing Pressors still in use OGT->Nepro started @ 10 ml/hr with increase to 30 ml/hr x 6 days; increase to goal rate of 45 ml/hr. Flush per air/ocean export clerk. Wt: 259#; good UOP at this time Estimated needs based on IBW of 208# (94.5 kg): 7055-8730 kcal (30-35 kcal/kg IBW) 95-124 g protein (1.0-1.3 gm/kg IBW) Fluid per air/ocean export clerk due to pt volume overloaded Nutrition goals: - Pt will tolerate TF of Nepro at goal rate - Meet fluid needs without further overload - Stable dry wt Interventions: Nepro started @ 10 ml/hr with slow increase over the next 6 days to goal rate of 45 ml/hr per pulmonology. Nepro @ goal rate of 45 ml/hr with propofol will provide: 2224 kcal (67-78% est kcal needs) 86 gm protein (70-90% gm protein) RDN will follow-up on pts progress toward nutrition goals: 02/17/21
[2021-02-16] VITALS (25 sets, daily range): BP systolic 101–140; BP diastolic 57–90
[2021-02-16 05:25] LABS: BASOPHILS 0.2 % (0-2); EOSINOPHILS 2.8 % (0-7); HEMATOCRIT 39.7 % (42.0-54.0); LYMPHOCYTES 9.6 % (15-50); MCH 28.6 pg (26.0-34.0); MCHC 32.6 g/dL (31.0-37.0); MCV 87.8 fL (80.0-100.0); MEAN PLATELET VOLUME 8.1 fL (7.4-10.4); MONOCYTES 10.9 % (2-11); NEUTROPHILS 76.5 % (40-80); PLATELET COUNT 124 10x3/uL (130-400); RBC 4.52 10x6/uL (4.20-6.10); RDW 15.4 % (11.5-14.5); WBC 8.1 10x3/uL (4.8-10.8)
[2021-02-16 05:42] LABS: ANION GAP 6.7 mmol/L (8-16); CALCIUM 7.7 mg/dL (8.5-10.1); CARBON DIOXIDE 36.9 mmol/L (21.0-32.0); CREATININE - SERUM 1.1 mg/dL (0.6-1.3); MAGNESIUM - SERUM 1.6 mg/dL (1.8-2.4); PHOSPHOROUS 2.1 mg/dL (2.5-4.9)
[2021-02-16 05:48] LABS: POTASSIUM - SERUM 2.6 mmol/L (3.5-5.1)
--- NOTE | 2021-02-16 07:30 | NUR ---
SEDATION REMOVED. PT PLACED ON CPAP TRIALS. ABLE TO WAKE UP AND FOLLOW COMMANDS. 0830- HR 140'S U.AFIB. CARDIOLOGY PAGED. ORDERS RECIEVED TO RESTART AMIODARONE GTT. 0915- DANG AT BEDSIDE. ORDERS RECIEVED TO SWITCH VENT SETTINGS BACK TO A/C DUE TO HEART RATE NOT IMPROVING. SEDATION INITIATED. RT AT BEDSIDE, PT SWITCHED BACK TO A/C.
--- NOTE | 2021-02-16 10:39 | NUR ---
BATH RECEIVED. LINENS AND GOWN CHANGED. LEGS/FEET ELEVATED. REDNESS/RAW NOTED TO AYO AREA. SCROTUM EDEMETOUS, ELEVATED. CALMOSEPTINE ORDERED PER DR. DANG. CLEANED AND DRIED AREA. NOTIFIED.
[2021-02-16 20:07] LABS: SPE - A/G RATIO 1.1 (0.7-1.7); SPE - ALBUMIN 2.5 g/dL (2.9-4.4); SPE - ALPHA-1 GLOBULIN 0.2 g/dL (0.0-0.4); SPE - ALPHA-2 GLOBULIN 0.6 g/dL (0.4-1.0); SPE - BETA GLOBULIN 0.7 g/dL (0.7-1.3); SPE - GAMMA GLOBULIN 0.8 g/dL (0.4-1.8); SPE - M-SPIKE Not Observed g/dL (Not Observed); SPE - TOTAL PROTEIN 4.8 g/dL (6.0-8.5)
[2021-02-17] VITALS (53 sets, daily range): BP systolic 78–179; BP diastolic 53–92
--- NOTE | 2021-02-17 03:35 | NUR ---
CVL DRESSING CHANGED, PER PROTOCOL
[2021-02-17 05:49] LABS: BASOPHILS 0.6 % (0-2); EOSINOPHILS 2.9 % (0-7); HEMATOCRIT 40.5 % (42.0-54.0); LYMPHOCYTES 12.7 % (15-50); MCH 28.1 pg (26.0-34.0); MCV 87.8 fL (80.0-100.0); MEAN PLATELET VOLUME 8.2 fL (7.4-10.4); MONOCYTES 9.3 % (2-11); NEUTROPHILS 74.5 % (40-80); PLATELET COUNT 130 10x3/uL (130-400); RBC 4.62 10x6/uL (4.20-6.10); RDW 15.1 % (11.5-14.5); WBC 9.7 10x3/uL (4.8-10.8)
[2021-02-17 06:18] LABS: CALC OSMOLALITY 284 mosm/kg (275-300); CARBON DIOXIDE 34.5 mmol/L (21.0-32.0); CHLORIDE - SERUM 100 mmol/L (98-107); CREATININE - SERUM 0.9 mg/dL (0.6-1.3); GLUCOSE 122 mg/dL (74-106); MAGNESIUM - SERUM 1.8 mg/dL (1.8-2.4); PHOSPHOROUS 2.6 mg/dL (2.5-4.9); SODIUM 139 mmol/L (136-145); TRIGLYCERIDE 101 mg/dL (30-200); UREA NITROGEN 29 mg/dL (7-18); eGFR NON AFRICAN AMERICAN 88 mL/min (90-120)
[2021-02-17 06:20] LABS: POTASSIUM - SERUM 3.5 mmol/L (3.5-5.1)
--- NOTE | 2021-02-17 09:47 | NUR ---
PROPOFOL STOPPED AT PRESENT TIME. PRESSURE SUPPORT TRIALS STARTED.
--- NOTE | 2021-02-17 13:00 | NUR ---
Nutrition follow-up: Pt discussed during IDT team rounds. PST today TF on hold Sedation on hold Labs reviewed Wt: 249# Possible extubation per Dr. Carrero today RDN will follow-up in 1-2 days
--- NOTE | 2021-02-17 13:05 | NUR ---
PT EXTUBATED PER RT AND PLACED ON BIPAP.
--- NOTE | 2021-02-17 16:32 | MORECARE ---
CASE MANAGEMENT DISCHARGE SUMMARY PATIENT: EZEKIEL BERKOWITZ UNIT: [id number] ADM DATE: 02/10/21 AGE: 70 : 49 SEX: M ROOM/BED: D.2303 AUTHOR: NOLAN,DOC PHYSICIAN: REFERRING PHYSICIAN: LEIGHANN DUNHAM MD DATE OF SERVICE: 02/17/21 Case Management Discharge Planning Summary COMMENTS ENTERED DATE: 02/17/21 16:21 CT COMMENT TYPE: Discharge Planning REVIEWER: Shira Mckenzie CM instructed by patient's nurse, Darin, to discuss hospice with family, CM met with patient's in the presence of ICU nurse, Darin. Discussed Hospice. states their home is not "condusive to medical care" also states patient does not want to go to a assisted. agreeable to [facility] Hospice. Signed GEENA for [facility]. CM called and spoke with Ana at the [place] about [facility] eval. Ana stated that was fine, States they have a contract with [facility]. States Hospice has any questions about referral they can call Jailene Bailon ([place] Coordinator) at [phone]. CM called and spoke with Dorothy at [facility] about referral. Faxed records as requested. Awaiting eval and determination. DCP REVIEW SUMMARY ANTICIPATED D/C DATE: EXPECTED LOS : CASE STATUS: DCP Initiated INITIAL REVIEW: 02/10/2021 INITIAL REVIEWER: Shira Mckenzie FINAL DISCHARGE DISPOSITION: : FINAL REVIEWER: FINAL REVIEW DATE: DCP Focus Questions & Answers QUESTION: ANSWER : PATIENT: EZEKIEL BERKOWITZ ENCOUNTER: [id number] MEDICAL RECORD#: [id number] ADMISSION DATE: 02/10/2021 DISCHARGE DATE: ATTENDING MD: LEIGHANN ALVAREZ : AGE: 70 MARITAL STATUS: M DC PLAN ID: [id number] FACILITY: [facility] PRINTED ON: 02/17/21 16:32 CT All edits/amendments must be made on the electronic document DICTATION DATE: 02/17/211631 SCREWMAKER AUTOMATIC: MARIELA 02/17/21 163 RPT#: [id number] DC DATE: STATUS: ADM IN [facility] [address] [place] [address] END OF REPORT
--- NOTE | 2021-02-17 18:16 | NUR ---
CONSULTED [facility]. PT SPOUSE AGREED TO HOSPICE. ADMISSION NURSE, KEO CALLED AND PT HAS BEEN ACCEPTED BY DR KHALIL. KEO HOSPICE NURSE IN ROUTE. CARDIAC DRIPS STOPPED AND DC'D.
--- NOTE | 2021-02-17 20:55 | MORECARE ---
CASE MANAGEMENT DISCHARGE SUMMARY PATIENT: EZEKIEL BERKOWITZ UNIT: [id number] ADM DATE: 02/10/21 AGE: 70 : 49 SEX: M ROOM/BED: D.2303 AUTHOR: NOLAN,DOC PHYSICIAN: REFERRING PHYSICIAN: LEIGHANN DUNHAM MD DATE OF SERVICE: 02/17/21 Case Management Discharge Planning Summary COMMENTS ENTERED DATE: 02/17/21 16:21 CT COMMENT TYPE: Discharge Planning REVIEWER: Shira Mckenzie CM instructed by patient's nurse, Darin, to discuss hospice with family, CM met with patient's in the presence of ICU nurse, Darin. Discussed Hospice. states their home is not "condusive to medical care" also states patient does not want to go to a senior living. agreeable to [facility] Hospice. Signed GEENA for [facility]. CM called and spoke with Ana at the [place] about [facility] eval. Ana stated that was fine, States they have a contract with [facility]. States Hospice has any questions about referral they can call Jailene Bailon ([place] Coordinator) at [phone]. CM called and spoke with Dorothy at [facility] about referral. Faxed records as requested. Awaiting eval and determination. DCP REVIEW SUMMARY ANTICIPATED D/C DATE: EXPECTED LOS : CASE STATUS: DCP Initiated INITIAL REVIEW: 02/10/2021 INITIAL REVIEWER: Shira Mckenzie FINAL DISCHARGE DISPOSITION: : FINAL REVIEWER: FINAL REVIEW DATE: DCP Focus Questions & Answers QUESTION: ANSWER : PATIENT: EZEKIEL BERKOWITZ ENCOUNTER: [id number] MEDICAL RECORD#: [id number] ADMISSION DATE: 02/10/2021 DISCHARGE DATE: 02/17/2021 ATTENDING MD: LEIGHANN ALVAREZ : AGE: 70 MARITAL STATUS: M DC PLAN ID: [id number] FACILITY: [facility] PRINTED ON: 02/17/21 20:55 CT All edits/amendments must be made on the electronic document DICTATION DATE: 02/17/212054 PILE DRIVER OPERATOR BARGE MOUNTED: MARIELA 02/17/212054 RPT#: [id number] DC DATE:02/17/21 STATUS: DIS IN [facility] [address] [place] [address] END OF REPORT
--- NOTE | 2021-02-17 21:57 | MORECARE ---
CASE MANAGEMENT DISCHARGE SUMMARY PATIENT: EZEKIEL BERKOWITZ UNIT: [id number] ADM DATE: 02/10/21 AGE: 70 : 48 SEX: M ROOM/BED: D.2303 AUTHOR: NOLAN,DOC PHYSICIAN: REFERRING PHYSICIAN: LEIGHANN DUNHAM MD DATE OF SERVICE: 02/17/21 Case Management Discharge Planning Summary COMMENTS ENTERED DATE: 02/17/21 16:21 CT COMMENT TYPE: Discharge Planning REVIEWER: Shira Mckenzie CM instructed by patient's nurse, Darin, to discuss hospice with family, CM met with patient's in the presence of ICU nurse, Darin. Discussed Hospice. states their home is not "condusive to medical care" also states patient does not want to go to a [facility]. agreeable to [facility] Hosp[facility]. Signed GEENA for [facility]. CM called and spoke with Ana at the [facility] about [facility] eval. Ana stated that was fine, States they have a contract with [facility]. States Hospice has any questions about referral they can call Jailene Bailon ([place] Coordinator) at [phone]. CM called and spoke with Dorothy at [facility] about referral. Faxed records as requested. Awaiting eval and determination. DCP REVIEW SUMMARY ANTICIPATED D/C DATE: EXPECTED LOS : CASE STATUS: DCP Initiated INITIAL REVIEW: 02/10/2021 INITIAL REVIEWER: Shira Mckenzie FINAL DISCHARGE DISPOSITION: : FINAL REVIEWER: FINAL REVIEW DATE: DCP [employer] Questions [employer] Answers QUESTION: ANSWER : PATIENT: EZEKIEL BERKOWITZ ENCOUNTER: [id number] MEDICAL RECORD#: [id number] ADMISSION DATE: 02/10/2021 DISCHARGE DATE: 02/17/2021 ATTENDING MD: LEIGHANN ALVAREZ : AGE: 70 MARITAL STATUS: M DC PLAN ID: [id number] FACILITY: [facility] PRINTED ON: 02/17/21 21:56 CT All edits/amendments must be made on the electronic document DICTATION DATE: 02/17/212155 FURNITURE REPAIR TECHNICIAN: MARIELA 02/17/212155 RPT#: [id number] DC DATE:02/17/21 STATUS: DIS IN [facility] [address] [facility] [place] [address] END OF REPORT
== END 2021-02-17 20:50 | disposition hospice, inpatient (51) | DRG 870 ==
LOC: D.ER 17:13 → D.ICU 19:53
PROVIDERS: Emergency Medicine; Internal Medicine; Internal Medicine Nephrology; Internal Medicine Pulmonary Disease; ADMIT Emergency Medicine; ATTEND Emergency Medicine
PROC: 0BH17EZ Insertion of Endotracheal Airway into Trachea, Via Natural or Artificial Opening (ICD-10-PCS; principal; 2021-02-11)
PROC: 5A1955Z Respiratory Ventilation, Greater than 96 Consecutive Hours (ICD-10-PCS; 2021-02-11)
PROC: 05H633Z Insertion of Infusion Device into Left Subclavian Vein, Percutaneous Approach (ICD-10-PCS; 2021-02-11)
PROC: B547ZZA Ultrasonography of Left Subclavian Vein, Guidance (ICD-10-PCS; 2021-02-11)
DX: A41.9 Sepsis, unspecified organism (principal); J96.01 Acute respiratory failure with hypoxia; R57.0 Cardiogenic shock; R65.21 Severe sepsis with septic shock; J96.02 Acute respiratory failure with hypercapnia; I50.23 Acute on chronic systolic (congestive) heart failure; J15.6 Pneumonia due to other Gram-negative bacteria; N17.0 Acute kidney failure with tubular necrosis; I48.20 Chronic atrial fibrillation, unspecified; E87.1 Hypo-osmolality and hyponatremia; N17.9 Acute kidney failure, unspecified; Z79.01 Long term (current) use of anticoagulants; J43.9 Emphysema, unspecified; Z86.16 Personal history of COVID-19; F41.9 Anxiety disorder, unspecified; N40.0 Benign prostatic hyperplasia without lower urinary tract symptoms; E87.5 Hyperkalemia; D72.829 Elevated white blood cell count, unspecified; R60.1 Generalized edema; Z66 Do not resuscitate

== ENCOUNTER 2021-02-17 21:10 | Inpatient (IN) | payer OTHER ==
[~2021-02-17] VITALS: Ht 195.6 cm; Wt 107.2 kg
[2021-02-17 21:19] VITALS: BP 130/78; Ht 195.6 cm; Wt 107.2 kg
[2021-02-17 21:41] VITALS: BP 113/78
[2021-02-18 07:00] VITALS: BP 115/65
[2021-02-18 11:00] VITALS: BP 111/58
[2021-02-18 15:00] VITALS: BP 109/63
--- NOTE | 2021-02-18 17:22 | NUR ---
RECEIVED TO ROOM. RESTING WITH RESP EVEN AND UNLABORED 026L N/C. RIGHT ARM WEEPING DUE TO EDEMA WITH ARM ELEVATED FOR COMFORT. FAMILY AT BEDSIDE WITH NO COMPLAINTS NOTED. CONTINUE DNR STATUS.
[2021-02-18 20:00] VITALS: BP 98/66
--- NOTE | 2021-02-19 01:54 | NUR ---
PT RESTING IN BED WITH EYES CLOSED, UNLABORED RESPIRATION. PT REPOSITION, RIGHT ARM WEEPING AND ELEVATED FOR COMFORT, EDEMA AND REDNES IN ALL EXTREMETIES.
--- NOTE | 2021-02-19 02:49 | NUR ---
PER SHE DOESNT WANT TO GIVE PT MEDS PRESCRIBED SHE WILL LET NURSE KNOW IF PT NEEDS MED AT ALL HE IS RESTING AT THE MOMENT. PT QUESTION WHY PT IS NOT RECEIVING ANY TYPE OF NUTRIENT OR NORMAL SALINE, SHE WAS EXPLAINED THAT PT WAS NOT ABLE TO CONT DIALYSIS AND IS SWEELING AND HIS EXTREMITIES ARE WEEPING AND SHE IS REQUESTING SOMEONE TO TALK TO HER BESIDES NURSE. JAYY CONTACTED CARLOS TO COME TALK TO HER.
--- NOTE | 2021-02-19 04:23 | NUR ---
I have reviewed this patient and I concur with the Shift Assessment completed by the Licensed Practical Nurse today this shift.
--- NOTE | 2021-02-19 08:30 | NUR ---
HELPED TURN PATIENT. RESTING COMFORTABLY. AT BEDSIDE. BED IN LOWEST POSITION, BED RAILS X2, CALL LIGHT WITHIN REACH. WILL CONTINUE POC. ASSESSMENT PERFORMED AT THIS TIME.
[2021-02-19 09:14] VITALS: BP 105/71
--- NOTE | 2021-02-19 10:00 | NUR ---
HELPED TURN PATIENT. RESTING COMFORTABLY. WILL CONTINUE POC.
--- NOTE | 2021-02-19 15:05 | NUR ---
PRN ATIVAN FOR RESTLESSNESS. FAMILY AT BEDSIDE. DENIES ANY NEEDS. WILL CONTINUE POC.
--- NOTE | 2021-02-19 16:21 | NUR ---
PRN MORPHINE FOR RESTLESSNESS. TOELRATED WELL. FAMILY AT BEDSIDE. DENIES ANY NEEDS AT THIS TIME. BED IN LOWEST POSITION, BED RAILS X2, CALL LIGHT WITHIN REACH. WILL CONTINUE POC.
--- NOTE | 2021-02-19 16:55 | NUR ---
SCOPOLAMINE PATCH PLACED. IN ROOM. WILL CONTINUE POC.
--- NOTE | 2021-02-19 18:44 | NUR ---
TODD HAS BEEN NOTIFIED. FAMILY DENIES ANY NEEDS AT THIS TIME.
== END 2021-02-19 18:30 | DRG 951 ==
LOC: D.ICU 21:10 → D.MS 21:10
PROVIDERS: ADMIT Family Medicine; ATTEND Family Medicine
DX: Z51.5 Encounter for palliative care (principal)